=== PATIENT | female | born 1955 | race Caucasian/White ===

== ENCOUNTER 2017-03-28 08:31 | Emergency (ER) | payer BC ==
[2017-03-28 08:49] VITALS: BP 146/95
--- NOTE | 2017-03-28 09:06 | EDM.PDOC ---
ED HPI GENERAL MEDICAL PROBLEM - General Chief Complaint: General Stated Complaint: WOOD TICK LOWER RT SHOULDER BLADE Time Seen by Provider: 03/28/17 08:59 Source of Information: Reports: Patient, RN Notes Reviewed History Limitations: Reports: No Limitations - History of Present Illness INITIAL COMMENTS - FREE TEXT/NARRATIVE: 61-year-old female presents emergency department today with a tick found on her back it was partially removed unknown type of tick she believes it was attached yesterday, no symptoms no rash - Related Data Allergies Allergy/AdvReac Type Severity Reaction Status Date / Time Penicillins Allergy Swelling Verified 03/28/17 08:49 Home Meds: Home Meds Carbidopa/Levodopa [Sinemet 25-100 mg Tablet] 1 tab PO QID 03/28/17 [History] Levothyroxine Sodium [Synthroid] 50 mcg PO DAILY 03/28/17 [History] Venlafaxine HCl [Effexor Xr] 150 mg PO DAILY 03/28/17 [History] Past Medical History HEENT History: Reports: Hard of Hearing SHRIMPER History: Reports: Endometriosis Neurological History: Reports: Parkinson's - Past Surgical History Female Surgical History: Reports: Hysterectomy, Salpingo-Oophorectomy Social & Family History - Tobacco Use Smoking Status *Q: Never Smoker - Caffeine Use Caffeine Use: Reports: Soda - Recreational Drug Use Recreational Drug Use: No ED ROS GENERAL - Review of Systems Review Of Systems: See Below Constitutional: Reports: No Symptoms Skin: Reports: Wound ED EXAM, GENERAL - Physical Exam Exam: See Below Free Text/Narrative:: Examination of the back there is a erythematous area approximately 3 mm in diameter right mid axillary line thoracic region posterior unfortunately only the head remains I cannot identify the tick is removed with a #15 blade no bleeding appreciated Exam Limited By: No Limitations General Appearance: Alert, WD/WN, No Apparent Distress Course - Vital Signs Last Recorded V/S: Last Vital Signs Temp 97.2 F 03/28/17 08:46 Pulse 75 03/28/17 08:46 Resp 16 03/28/17 08:46 BP 146/95 H 03/28/17 08:46 Pulse Ox 95 03/28/17 08:46 Departure - Departure Time of Disposition: 09:06 Disposition: Home, Self-Care 01 Condition: good Clinical Impression: Tick bite of back Qualifiers: Encounter type: initial encounter Qualified Code(s): S30.860A - Insect bite ( nonvenomous) of lower back and pelvis, initial encounter; W57.XXXA - Bitten or stung by nonvenomous insect and other nonvenomous arthropods, initial encounter - Discharge Information Forms: ED Department Discharge Additional Instructions: Take full course of antibiotics, Please followup with your primary care provider in 7-10 days if not better, please call return to the emergency department with worsening of symptoms. - Assessment/Plan Plan: Assessment Acuity = acute Site and laterality = tick exposure Etiology = unknown type Manifestations = none Location of injury = home Lab values = none Plan Because of the potential the doxycycline 200 mg x1 was provided followup primary care as needed Patient was in agreement with the plan all questions were answered, they were instructed to return to the emergency department or call for worsening symptoms. This note was dictated using [employer] voice recognition software please call with any questions.
== END 2017-03-28 09:19 | disposition home or self-care (01) ==
LOC: JP.ED 08:31
DX: S30.860A Insect bite (nonvenomous) of lower back and pelvis, initial encounter (principal); G20 Parkinson's disease; Z79.899 Other long term (current) drug therapy; Z88.0 Allergy status to penicillin; Z90.710 Acquired absence of both cervix and uterus; Z90.721 Acquired absence of ovaries, unilateral; W57.XXXA Bitten or stung by nonvenomous insect and other nonvenomous arthropods, initial encounter
CPT/HCPCS: 99283

== ENCOUNTER 2018-08-14 09:03 | Emergency (ER) | payer BC ==
[2018-08-14] MEDS ORDERED: Diltiazem 25 MG/5 ML SDV IVPUSH ONE (09:11)
[2018-08-14] MEDS ORDERED: Sodium Chloride 0.9% 1,000 ML IV SCH (09:15)
--- NOTE | 2018-08-14 09:24 | EDM.PDOC ---
ED HPI GENERAL MEDICAL PROBLEM - General Chief Complaint: Chest Pain Stated Complaint: CHEST PAIN Time Seen by Provider: 08/14/18 09:05 Source of Information: Reports: Patient, Family History Limitations: Reports: No Limitations - History of Present Illness INITIAL COMMENTS - FREE TEXT/NARRATIVE: 63-year-old female with a sudden onset of palpitations and chest discomfort a half hour ago. She has not had symptoms like this in the past. No significant shortness of breath, no nausea or vomiting but she did feel lightheaded. On arrival a monitor showed her to be in atrial fibrillation with very rapid ventricular response. Onset: Sudden Duration: Hour(s): (A half hour ago) Severity: Moderate Associated Symptoms: Reports: Chest Pain (Chest pressure is present), Malaise. Denies: Fever/Chills, Headaches, Nausea/Vomiting, Shortness of Breath Anterior Chest Pain Score (Numeric/FACES): 8 - Related Data Allergies Allergy/AdvReac Type Severity Reaction Status Date / Time Penicillins Allergy Swelling Verified 08/14/18 09:10 Home Meds: Home Meds Carbidopa/Levodopa [Sinemet 25-100 mg Tablet] 1 tab PO QID 03/28/17 [History] Levothyroxine Sodium [Synthroid] 50 mcg PO DAILY 03/28/17 [History] Venlafaxine HCl [Effexor Xr] 150 mg PO DAILY 03/28/17 [History] Past Medical History HEENT History: Reports: Hard of Hearing Cardiovascular History: Reports: High Cholesterol MANGLE TENDER History: Reports: Endometriosis Musculoskeletal History: Reports: Fracture Other Musculoskeletal History: toe Neurological History: Reports: Parkinson's Psychiatric History: Reports: Depression Endocrine/Metabolic History: Reports: Hypothyroidism Hematologic History: Reports: Blood Transfusion(s) - Infectious Disease History Infectious Disease History: Reports: Chicken Pox, Mumps - Past Surgical History GI Surgical History: Reports: Colonoscopy Female Surgical History: Reports: Hysterectomy, Salpingo-Oophorectomy Social & Family History - Caffeine Use Caffeine Use: Reports: Soda ED ROS GENERAL - Review of Systems Review Of Systems: See Below Constitutional: Denies: Fever, Chills Respiratory: Denies: Shortness of Breath Cardiovascular: Reports: Chest Pain GI/Abdominal: Denies: Abdominal Pain, Nausea, Vomiting Musculoskeletal: Reports: No Symptoms Skin: Reports: Pallor Neurological: Reports: Dizziness. Denies: Headache, Paresthesia, Difficulty Walking ED EXAM, GENERAL - Physical Exam Exam: See Below Exam Limited By: No Limitations General Appearance: Alert, No Apparent Distress, Severe Distress Eye Exam: Bilateral Eye: Normal Inspection Head: Atraumatic Respiratory/Chest: No Respiratory Distress, Lungs Clear Cardiovascular: Tachycardia, Irregularly Irregular GI/Abdominal: Soft, Non-Tender Extremities: Normal Inspection. No: Pedal Edema Neurological: Alert, Oriented, No Motor/Sensory Deficits Psychiatric: Anxious Skin Exam: Warm, Dry EKG INTERPRETATION Rhythm: A-Fib Rate (Beats/Min): 148 Course - Vital Signs Last Recorded V/S: Last Vital Signs Temp 96.8 F 08/14/18 10:05 Pulse 64 08/14/18 10:05 Resp 16 08/14/18 10:05 BP 94/62 08/14/18 10:05 Pulse Ox 98 08/14/18 10:05 - Orders/Labs/Meds Orders: Active Orders 24 hr Category Date Time Status EKG Documentation Completion [RC] ASDIRECTED Care 08/14/18 09:11 Active EKG Documentation Completion [RC] ASDIRECTED Care 08/14/18 09:50 Active EKG 12 Lead [EK] Routine Ther 08/14/18 09:11 Ordered EKG 12 Lead [EK] Routine Ther 08/14/18 09:50 Ordered Labs: Laboratory Tests 08/14/18 08/14/18 Range/Units 09:11 09:11 WBC 6.3 (4.5-11.0) K/uL RBC 4.56 (3.30-5.50) M/uL Hgb 15.3 H (12.0-15.0) g/dL Hct 44.8 (36.0-48.0) % MCV 98 (80-98) fL MCH 34 H (27-31) pg MCHC 34 (32-36) % Plt Count 380 (150-400) K/uL Neut % (Auto) 39 (36-66) % Lymph % (Auto) 47 H (24-44) % [place] % (Auto) 8 H (2-6) % Eos % (Auto) 5 H (2-4) % Baso % (Auto) 1 (0-1) % Sodium 140 (140-148) mmol/L Potassium 5.0 (3.6-5.2) mmol/L Chloride 103 (100-108) mmol/L Carbon Dioxide 26 (21-32) mmol/L Anion Gap 10.6 (5.0-14.0) mmol/L BUN 22 H (7-18) mg/dL Creatinine 0.9 (0.6-1.0) mg/dL Est Cr Clr Drug Dosing 52.24 mL/min Estimated GFR (MDRD) > 60 (>60) Glucose 89 (74-106) mg/dL Calcium 9.1 (8.5-10.1) mg/dL Total Bilirubin 0.4 (0.2-1.0) mg/dL AST 34 (15-37) U/L ALT 16 (12-78) U/L Alkaline Phosphatase 105 (46-116) U/L Troponin I < 0.017 (0.000-0.056) ng/mL Total Protein 7.5 (6.4-8.2) g/dL Albumin 3.8 (3.4-5.0) g/dL Globulin 3.7 H (2.3-3.5) g/dL Albumin/Globulin Ratio 1.0 L (1.2-2.2) Meds: Medications Discontinued Medications Generic Name Dose Route Start Last Admin Trade Name Freq PRN Reason Stop Dose Admin Diltiazem HCl 25 mg 08/14/18 09:11 08/14/18 09:22 Diltiazem IVPUSH 08/14/18 09:12 25 mg ONETIME ONE Administration Sodium Chloride 1,000 mls @ 1,000 mls/hr 08/14/18 09:15 08/14/18 09:19 Normal Saline IV 1,000 mls/hr ASDIRECTED [facility] Administration - Re-Assessments/Exams Free Text/Narrative Re-Assessment/Exam: 08/14/18 09:49 Initial EKG confirmed atrial fibrillation with rapid ventricular response. An IV was started, labs were drawn and the patient was given 25 mg of IV Cardizem. This had a very effective slowing of the rate into the 80s and 90s, and ultimately she converted back to normal sinus rhythm. Symptoms resolved. CBC CMP and troponin all returned within normal limits and reassuring. She did not want to be hospitalized, so a postconversion EKG was obtained and she will follow-up with her primary care for an echocardiogram and further workup as needed. 08/14/18 09:57 Postconversion version EKG confirms sinus rhythm with no ST changes. Patient wanted to be discharged so she'll follow-up with her primary care with her labs , EKGs to discuss further evaluation such as echocardiogram and thyroid function testing. Departure - Departure Time of Disposition: 10:19 Disposition: Home, Self-Care 01 Condition: Good Clinical Impression: Atrial fibrillation with rapid ventricular response - Discharge Information Instructions: Atrial Fibrillation, [id number] Referrals: PCP,None [Primary Care Provider] - Forms: ED Department Discharge Care Plan Goals: Continue current medications, stay hydrated, and recheck with your regular clinic in the next week or so to discuss any further testing that may be necessary. Return to the emergency room anytime if symptoms recur. - My Orders Last 24 Hours: My Active Orders 08/14/18 09:11 EKG Documentation Completion [RC] ASDIRECTED EKG 12 Lead [EK] Routine 08/14/18 09:50 EKG Documentation Completion [RC] ASDIRECTED EKG 12 Lead [EK] Routine - Assessment/Plan Last 24 Hours: My Active Orders 08/14/18 09:11 EKG Documentation Completion [RC] ASDIRECTED EKG 12 Lead [EK] Routine 08/14/18 09:50 EKG Documentation Completion [RC] ASDIRECTED EKG 12 Lead [EK] Routine
[2018-08-14 10:19] VITALS: BP 94/62
== END 2018-08-14 10:19 | disposition home or self-care (01) ==
LOC: JP.ED 09:03
DX: I48.91 Unspecified atrial fibrillation (principal); E78.00 Pure hypercholesterolemia, unspecified; F32.9 Major depressive disorder, single episode, unspecified; G20 Parkinson's disease; E03.9 Hypothyroidism, unspecified; Z79.899 Other long term (current) drug therapy; Z88.0 Allergy status to penicillin
CPT/HCPCS: 36415; 80053; 84484; 85025; 93005; 96361; 96374; 99285; J3490; J7030

== ENCOUNTER 2020-04-24 22:49 | Emergency (ER) | payer SELFPAY ==
[2020-04-24] MEDS ORDERED: HYDROmorphone 0.5 MG/0.5 ML Syringe IM ONE (23:33)
[2020-04-24] MEDS ORDERED: Acetaminophen 325 MG Tab PO ONE (23:39)
--- NOTE | 2020-04-24 23:41 | EDM.PDOC ---
ED HPI GENERAL MEDICAL PROBLEM - General Chief Complaint: ENT Problem Stated Complaint: EAR PAIN,HEADACHE Time Seen by Provider: 04/24/20 23:41 Source of Information: Reports: Patient History Limitations: Reports: No Limitations - History of Present Illness INITIAL COMMENTS - FREE TEXT/NARRATIVE: pt was seen in the [facility] last nite with severe vertigo She was treated with fluids and she was given antivert and the vertigo got better. Tonight she is having severe pain in her rt ear and she has a fever. Onset: Today, Sudden Duration: Hour(s): Location: Reports: Face, Other (pt had vertigo last nite. ) Associated Symptoms: Reports: Fever/Chills, Malaise, Weakness Right Ear Pain Score (Numeric/FACES): 10 - Related Data Allergies Allergy/AdvReac Type Severity Reaction Status Date / Time gabapentin Allergy Cannot Verified 04/24/20 23:23 Remember Penicillins Allergy Swelling Verified 04/24/20 22:53 Home Meds: Home Meds Levothyroxine Sodium [Synthroid] 50 mcg PO DAILY 03/28/17 [History] Venlafaxine HCl [Effexor Xr] 150 mg PO DAILY 03/28/17 [History] Carbidopa/Levodopa [Rytary ER 36.25 mg-145 mg Cap] 2 tab PO TID 04/24/20 [ History] Meclizine [Antivert] 25 mg PO Q4H PRN 04/24/20 [History] Ondansetron [Zofran ODT] 4 mg PO Q4H PRN 04/24/20 [History] Past Medical History HEENT History: Reports: Hard of Hearing, Impaired Vision, Other (See Below) Other HEENT History: vertigo Cardiovascular History: Reports: Afib, High Cholesterol Gastrointestinal History: Reports: Chronic Constipation [employer]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 History: Reports: Endometriosis Musculoskeletal History: Reports: Fracture Other Musculoskeletal History: toe Neurological History: Reports: Parkinson's Psychiatric History: Reports: Depression Endocrine/Metabolic History: Reports: Hypothyroidism Hematologic History: Reports: Blood Transfusion(s) - Infectious Disease History Infectious Disease History: Reports: Chicken Pox, Mumps - Past Surgical History GI Surgical History: Reports: Colonoscopy Female Surgical History: Reports: Hysterectomy, Salpingo-Oophorectomy Social & Family History - Tobacco Use Smoking Status *Q: Never Smoker - Caffeine Use Caffeine Use: Reports: None - Recreational Drug Use Recreational Drug Use: No ED ROS ENT - Review of Systems Review Of Systems: See Below Constitutional: Reports: Fever, Chills, Malaise HEENT: Reports: Ear Pain, Other (pt is having severe pain in the rt ear. She was seen with vertigo the nite before. She has not noted drainage from the ear. ) Respiratory: Reports: No Symptoms Cardiovascular: Reports: No Symptoms Endocrine: Reports: No Symptoms GI/Abdominal: Reports: No Symptoms : Reports: No Symptoms Musculoskeletal: Reports: No Symptoms Skin: Reports: No Symptoms ED EXAM, ENT - Physical Exam Exam: See Below Text/Narrative:: pt arrived with pain in the rt ear. This started this pm and was very severe. Exam Limited By: No Limitations General Appearance: Alert, Anxious, Moderate Distress Ears: Other ( rt drum is red and inflamed. She is tender post to the ear in the mastoid area. ) Nose: Normal Inspection Mouth/Throat: Normal Inspection Head: Atraumatic Neck: Lymphadenopathy (R) Respiratory/Chest: No Respiratory Distress Cardiovascular: Regular Rate, Rhythm GI/Abdominal: Soft, Non-Tender (Female) Exam: Deferred Rectal (Female) Exam: Deferred Back: Normal Inspection Extremities: Normal Inspection Neurological: Alert, Oriented, Normal Cognition Psychiatric: Anxious Course - Vital Signs Last Recorded V/S: Last Vital Signs Temp 37.7 C 04/24/20 23:03 Pulse 86 04/25/20 01:44 Resp 18 04/25/20 01:44 BP 148/77 H 04/25/20 01:44 Pulse Ox 91 L 04/25/20 01:44 - Orders/Labs/Meds Labs: Laboratory Tests 04/24/20 04/24/20 04/24/20 Range/Units 00:10 00:10 00:10 WBC 8.3 (4.5-11.0) K/uL RBC 4.16 (3.30-5.50) M/uL Hgb 13.5 (12.0-15.0) g/dL Hct 41.4 (36.0-48.0) % MCV 100 H (80-98) fL MCH 33 H (27-31) pg MCHC 33 (32-36) % Plt Count 298 (150-400) K/uL Neut % (Auto) 77 H (36-66) % Lymph % (Auto) 15 L (24-44) % [place] % (Auto) 8 H (2-6) % Eos % (Auto) 0 L (2-4) % Baso % (Auto) 0 (0-1) % Sodium 138 L (140-148) mmol/L Potassium 3.7 (3.6-5.2) mmol/L Chloride 103 (100-108) mmol/L Carbon Dioxide 27 (21-32) mmol/L Anion Gap 11.7 (5.0-14.0) mmol/L BUN 14 (7-18) mg/dL Creatinine 0.8 (0.6-1.0) mg/dL Est Cr Clr Drug Dosing 60.54 mL/min Estimated GFR (MDRD) > 60 (>60) Glucose 106 (74-106) mg/dL Lactic Acid 1.3 (0.4-2.0) mmol/L Calcium 8.3 L (8.5-10.1) mg/dL Total Bilirubin 0.4 (0.2-1.0) mg/dL AST 16 (15-37) U/L ALT 15 (12-78) U/L Alkaline Phosphatase 104 (46-116) U/L Total Protein 6.8 (6.4-8.2) g/dL Albumin 3.5 (3.4-5.0) g/dL Globulin 3.3 (2.3-3.5) g/dL Albumin/Globulin Ratio 1.1 L (1.2-2.2) Urine Color (YELLOW) Urine Appearance (CLEAR) Urine pH (5.0-8.0) Ur Specific [place] (1.008-1.030) Urine Protein (NEGATIVE) mg/dL Urine Glucose (UA) (NEGATIVE) mg/dL Urine Ketones (NEGATIVE) mg/dL Urine Occult Blood (NEGATIVE) Urine Nitrite (NEGATIVE) Urine Bilirubin (NEGATIVE) Urine Urobilinogen (0.2-1.0) EU/dL Ur Leukocyte Esterase (NEGATIVE) Urine RBC (0-5) Urine WBC (0-5) Ur Epithelial Cells Amorphous Sediment Urine Bacteria Urine Mucus 04/25/20 Range/Units 01:53 WBC (4.5-11.0) K/uL RBC (3.30-5.50) M/uL Hgb (12.0-15.0) g/dL Hct (36.0-48.0) % MCV (80-98) fL MCH (27-31) pg MCHC (32-36) % Plt Count (150-400) K/uL Neut % (Auto) (36-66) % Lymph % (Auto) (24-44) % [place] % (Auto) (2-6) % Eos % (Auto) (2-4) % Baso % (Auto) (0-1) % Sodium (140-148) mmol/L Potassium (3.6-5.2) mmol/L Chloride (100-108) mmol/L Carbon Dioxide (21-32) mmol/L Anion Gap (5.0-14.0) mmol/L BUN (7-18) mg/dL Creatinine (0.6-1.0) mg/dL Est Cr Clr Drug Dosing mL/min Estimated GFR (MDRD) (>60) Glucose (74-106) mg/dL Lactic Acid (0.4-2.0) mmol/L Calcium (8.5-10.1) mg/dL Total Bilirubin (0.2-1.0) mg/dL AST (15-37) U/L ALT (12-78) U/L Alkaline Phosphatase (46-116) U/L Total Protein (6.4-8.2) g/dL Albumin (3.4-5.0) g/dL Globulin (2.3-3.5) g/dL Albumin/Globulin Ratio (1.2-2.2) Urine Color Yellow (YELLOW) Urine Appearance Clear (CLEAR) Urine pH 6.0 (5.0-8.0) Ur Specific [place] 1.015 (1.008-1.030) Urine Protein Negative (NEGATIVE) mg/dL Urine Glucose (UA) Negative (NEGATIVE) mg/dL Urine Ketones Negative (NEGATIVE) mg/dL Urine Occult Blood Negative (NEGATIVE) Urine Nitrite Negative (NEGATIVE) Urine Bilirubin Negative (NEGATIVE) Urine Urobilinogen 0.2 (0.2-1.0) EU/dL Ur Leukocyte Esterase Negative (NEGATIVE) Urine RBC 0-5 (0-5) Urine WBC 0-5 (0-5) Ur Epithelial Cells Few Amorphous Sediment Not seen Urine Bacteria Rare Urine Mucus Not seen Meds: Medications Discontinued Medications Generic Name Dose Route Start Last Admin Trade Name Freq PRN Reason Stop Dose Admin Acetaminophen 650 mg 04/24/20 23:39 04/25/20 00:28 Tylenol PO 04/24/20 23:40 650 mg NOW ONE Administration Hydromorphone HCl 0.5 mg 04/24/20 23:33 04/24/20 23:38 Dilaudid IM 04/24/20 23:34 0.5 mg ONETIME ONE Administration Hydromorphone HCl 0.5 mg 04/25/20 00:07 04/25/20 00:20 Dilaudid IVPUSH 04/25/20 00:08 0.5 mg ONETIME ONE Administration Hydromorphone HCl 0.5 mg 04/25/20 00:53 04/25/20 01:14 Dilaudid IVPUSH 04/25/20 00:54 0.5 mg ONETIME ONE Administration Hydromorphone HCl Confirm 04/25/20 01:08 04/25/20 01:14 Dilaudid Administered 04/25/20 01:09 Not Given Dose 0.5 mg .ROUTE .STK-MED ONE Sodium Chloride 1,000 mls @ 999 mls/hr 04/24/20 23:45 04/25/20 00:45 Normal Saline IV 500 mls/hr ASDIRECTED GARY Administration Ceftriaxone Sodium 1 gm/ 50 mls @ 100 mls/hr 04/25/20 01:18 04/25/20 01:39 Sodium Chloride IV 04/25/20 01:47 100 mls/hr ONETIME ONE Administration Ibuprofen 600 mg 04/25/20 01:58 04/25/20 02:28 Motrin PO 04/25/20 01:59 Not Given ONETIME ONE Lorazepam 0.5 mg 04/25/20 00:53 04/25/20 01:10 Ativan IVPUSH 04/25/20 00:54 0.5 mg ONETIME ONE Administration Lorazepam Confirm 04/25/20 01:08 04/25/20 01:14 Ativan Administered 04/25/20 01:09 Not Given Dose 2 mg .ROUTE .STK-MED ONE - Re-Assessments/Exams Free Text/Narrative Re-Assessment/Exam: 04/25/20 01:52 pt had a cat scan--max facial which was neg for sinusitis. There was not obvious cause for the severe pain. 04/25/20 01:59 Departure - Departure Time of Disposition: 02:30 Disposition: Home, Self-Care 01 Condition: Fair Clinical Impression: Otitis media, Vertigo - Discharge Information Instructions: Vertigo, Otitis Media, Adult Referrals: Jenny Bose PA [Primary Care Provider] - Forms: ED Department Discharge Care Plan Goals: push fluids, motrin 600mg q6h for fever and pain, percocet 5/325 q6h prn for pain, kefles 500mg qid for 10 days, push yogurt or probiotic while on the antibiotic. See primary care to recheck the ear in 1 week. rtc if persistent problems. Sepsis Event Note (ED) - Evaluation Sepsis Screening Result: No Definite Risk
[2020-04-24] MEDS ORDERED: Sodium Chloride 0.9% 1,000 ML IV SCH (23:45)
[2020-04-25] MEDS ORDERED: HYDROmorphone 0.5 MG/0.5 ML Syringe IVPUSH ONE ×2 (00:07→00:53)
[2020-04-25] MEDS ORDERED: LORazepam 2 MG/ML SDV IVPUSH ONE (00:53)
[2020-04-25] MEDS ORDERED: HYDROmorphone 0.5 MG/0.5 ML Syringe ONE (01:08)
[2020-04-25] MEDS ORDERED: LORazepam 2 MG/ML SDV ONE (01:08)
--- NOTE | 2020-04-25 01:12 | CRLCT ---
INDICATION: Severe left ear pain TECHNIQUE: CT maxillofacial without contrast. COMPARISON: None FINDINGS: Facial bones: No fractures or bone lesions. Specifically the nasal bones, temporomandibular joints, maxilla and mandible appear intact. Orbits and globes: Unremarkable. Sinuses: No acute or significant findings. Soft tissues: Unremarkable. IMPRESSION: Unremarkable CT scan of the facial bones with no findings to explain the patient`s severe left ear pain. Dictated by Gordon Wise MD @ 04/25/2020 1:10:07 AM Please note that all CT scans at this facility use dose modulation, iterative reconstruction, and/or weight-based dosing when appropriate to reduce radiation dose to as low as reasonably achievable. Dictated by: Gordon Wise MD @ 04/25/2020 01:10:11 (Electronically Signed)
[2020-04-25] MEDS ORDERED: cefTRIAXone 1 GM in Sodium Chloride 0.9% 50 ML IV ONE (01:18)
[2020-04-25 01:45] VITALS: BP 148/77; PULSE 86
[2020-04-25] MEDS ORDERED: Ibuprofen 600 MG Tab PO ONE (01:58)
== END 2020-04-25 02:30 | disposition home or self-care (01) ==
LOC: JP.ED 22:49
DX: H66.91 Otitis media, unspecified, right ear (principal); R42 Dizziness and giddiness; I48.91 Unspecified atrial fibrillation; G20 Parkinson's disease; F32.9 Major depressive disorder, single episode, unspecified; E03.9 Hypothyroidism, unspecified; Z79.899 Other long term (current) drug therapy; Z88.8 Allergy status to other drugs, medicaments and biological substances; Z88.0 Allergy status to penicillin
CPT/HCPCS: 36415; 70486; 80053; 81001; 83605; 85025; 96361; 96365; 96372; 96375; 96376; 99284; A9270; J0696; J1170; J2060; J7030; J7050